=== PATIENT | female | born 1970 | race Caucasian/White ===

== ENCOUNTER → 2018-09-25 | Outpatient (CLI) | payer OTHER ==
[~2018-09-25] MED LIST: IOPAMIDOL 370 MG/ML 200 ML INFUS..BTL INJ ONE; SODIUM CHLORIDE 0.9% 50ML 50 ML ONE
--- NOTE | 2018-09-25 15:29 | Diagnostic Imaging Report ---
EXAMINATION: PA and lateral views of the chest. COMPARISON: None CLINICAL HISTORY: Anemia DISCUSSION: Lines/tubes: None. Lungs: The lungs are well inflated and clear. There is no evidence of pneumonia or pulmonary edema. Pleura: There is no pleural effusion or pneumothorax. Heart and mediastinum: The cardiomediastinal silhouette is normal. Bones and soft tissues: No acute bony abnormalities. Degenerative changes in the thoracic spine IMPRESSION: No acute cardiopulmonary abnormalities. Signed by: Dr. Ulises Kearney M.D. on 09/25/2018 3:26 PM
--- NOTE | 2018-09-25 16:49 | Diagnostic Imaging Report ---
EXAMINATION: CT of the abdomen and pelvis with contrast. TECHNIQUE: Spiral CT images of the abdomen and pelvis were performed from the lung bases to the lesser trochanters after the intravenous administration of 100 cc Isovue-370. Coronal and sagittal reformatted images were obtained. COMPARISON: None. CLINICAL HISTORY:Iron deficiency anemia, vaginal bleeding DISCUSSION: ABDOMEN/PELVIS: LOWER THORAX:4-5 mm groundglass nodule left lower lobe series 2 image 1. Juxtapleural reticular and groundglass opacities in the lingula, right middle lobe, and lateral right lower lobe, nonspecific. HEPATOBILIARY: No focal hepatic lesions. No intra-or extrahepatic biliary ductal dilation. The gallbladder is normal. SPLEEN: No splenomegaly. PANCREAS: No focal masses or ductal dilatation. ADRENALS: 3 cm nodule in the lateral limb of the right adrenal gland, average internal attenuation 17 Hounsfield units. No left adrenal nodule. KIDNEYS/URETERS: No hydronephrosis, stones, or solid mass lesions. PELVIC ORGANS/BLADDER: Urinary bladder is unremarkable. The uterus is anteflexed with a lobulated external contour. No adnexal mass. PERITONEUM/RETROPERITONEUM: No ascites. No pneumoperitoneum. LYMPH NODES: No pelvic sidewall, retroperitoneal, or mesenteric lymphadenopathy. VESSELS: The abdominal aorta, major branch vessels, and iliac arterial systems are patent without aneurysmal dilatation. Portal vein, splenic vein, and central superior mesenteric vein are patent. GI TRACT: The large bowel shows no evidence of distention or wall thickening. Gas and fecal material are noted throughout. The appendix is normal. The stomach is collapsed with prominent rugal folds. No small bowel dilatation to suggest obstruction BONES AND SOFT TISSUE: No osseous destructive lesions. Nonaggressive appearing sclerotic focus in the L4 vertebral body. IMPRESSION: No acute intra-abdominal or pelvic CT abnormalities. Lobular contour of the uterus likely due to fibroids. This finding may be further evaluated by transvaginal pelvic ultrasound or pelvic MRI. 3 cm right adrenal nodule is indeterminate though statistically likely to represent a lipid rich adenoma. Definitive characterization with CT or MR of the abdomen with and without contrast (adrenal mass protocol) is suggested. 5 mm groundglass nodule in the left lower lobe should be assessed for stability by CT scan of the chest without contrast in one year if the patient is at high risk of malignancy. Signed by: Dr. Ulises Kearney M.D. on 09/25/2018 4:46 PM
== END ==
LOC: CT 14:31
PROVIDERS: ATTEND Internal Medicine Medical Oncology
DX: D50.9 Iron deficiency anemia, unspecified (principal)
CPT/HCPCS: 71046; 74177; 81025; Q9967